=== PATIENT | female | born 1945 | race Caucasian/White ===

== ENCOUNTER → 2016-11-11 | Outpatient (CLI) | payer MEDICARE, OTHER ==
[~2016-11-11] MED LIST: ASPIRIN 32325 MG/TAB PO; ASPIRIN 81M81 MG/TA2 PO; CALTRATE 600600 MG PO; CENTRUM1 TAB PO; FLAGYL500 MG PO; KLOR-CON M2020 MEQ PO; LASIX 20MG TABL20 MG PO; LOPRESSOR 225 MG/TAB; LOPRESSOR 225 MG/TAB PO; MIRALAX PA17 GM/Dose PO; NORCO 325 MG-51 TAB PO; PREVACID 15MG15 M1 PO; PREVACID 30MG30 M1 PO; ZESTRIL 5MG5 MG PO
== END ==
LOC: MC.RAD 14:32
DX: Z12.31 Encounter for screening mammogram for malignant neoplasm of breast (principal); N63 Unspecified lump in breast; Z80.3 Family history of malignant neoplasm of breast

== ENCOUNTER → 2016-11-14 | Outpatient (CLI) | payer MEDICARE, OTHER | LOC: MC.RAD 10:59 | DX: Z12.31 Encounter for screening mammogram for malignant neoplasm of breast (principal) ==

== ENCOUNTER 2018-08-25 17:22 | Inpatient (IN) | payer MEDICARE, OTHER ==
[~2018-08-25] VITALS: Ht 162.6 cm; Wt 81.8 kg
[~2018-08-25 17:22] MED LIST changes: -ASPIRIN 32325 MG/TAB PO
[2018-08-25 21:26] LABS: BASO # 0.1 (0.0-0.2); BASO % 0.5 % (0.0-2.0); EOS # 0.1 (0.0-0.7); EOS % 0.6 % (0-4.0); GRAN # 10.7 (1.4-6.5); GRAN % 81.6 % (42.2-75.2); HEMOGLOBIN 13.1 g/dl (12.5-16.0); LYMPH # 1.2 (1.2-3.4); LYMPH % 9.3 % (20.0-51.0); MEAN CELL VOLUME 90 fl (80.0-100.0); MEAN CORPUSCULAR HEMOGLOBIN 29 pg (27.0-31.0); MEAN CORPUSCULAR HGB CONC 32 g/dl (33.0-37.0); MEAN PLATELET VOLUME 10.3 fl (7.4-10.4); MONO % 7.5 % (1.7-9.3); PLATELET COUNT 249 K/mm3 (130-400); RED BLOOD COUNT 4.58 M/mm3 (4.10-5.30); REDCELL DISTRIBUTION WIDTH-CV 14.5 % (11.5-14.5)
[2018-08-25 21:36] LABS: ALBUMIN 3.8 gm/dL (3.5-5.0); BILIRUBIN,TOTAL 0.4 mg/dL (0.0-1.0); CALCIUM 8.7 mg/dL (8.4-10.2); CREATININE, serum 0.82 mg/dL (0.52-1.25); POTASSIUM 4.4 mmol/L (3.4-5.0); TOTAL PROTEIN 6.9 gm/dL (6.4-8.2)
[2018-08-25] MEDS ORDERED: PRILOSEC10 MG PO (21:57)
[2018-08-25] MEDS ORDERED: LIPITOR 10MG10 MG PO (21:59)
[2018-08-25] MEDS ORDERED: BENADRYL25 M2 PO (22:00)
[2018-08-25] MEDS ORDERED: CENTRUM SILVER1 TAB (22:01)
[2018-08-25] MEDS ORDERED: CALTRATE-600 W600 MG PO (22:01)
--- NOTE | 2018-08-25 22:20 | NUR ---
Patient up to room from ER by jamil. Alert and oriented x 3. 5 page complete. Splint and CARYL wrap to LLE. SCD to RLE. Cap refill <3 to BLE. Patient stated pain 5/10 to LLE. Edema noted to LLE. IV fluids infusing via pump. Patient repositioned for comfort. Johnson to dependent drainage with clear yellow urine present. Denies further needs at this time.
[2018-08-25 23:01] LABS: PH 5 (5-8); SQUAMOUS EPITHELIAL 0-2 /hpf; URINE APPEARANCE Clear; URINE BACTERIA None Seen /hpf; URINE BILIRUBIN Negative (NEGATIVE); URINE BLOOD Negative (NEGATIVE); URINE COLOR Yellow; URINE GLUCOSE Negative (NEGATIVE); URINE KETONE Negative (NEGATIVE); URINE LEUKOCYTE ESTERASE Negative (NEGATIVE); URINE NITRATE Negative (NEGATIVE); URINE PROTEIN(semi-quant) Negative (NEGATIVE); URINE UROBILINOGEN Negative (NEGATIVE)
[2018-08-26 00:55] VITALS: BP 153/67; PULSE 98; TEMP 97.8
[2018-08-26 01:04] LABS: COLLECTION METHOD CATHETER
[2018-08-26 04:14] VITALS: BP 134/70; PULSE 88; TEMP 98.3
--- NOTE | 2018-08-26 05:43 | NUR ---
Patient has rested intermittently through the night. Has requested medications for pain to left ankle through the night. Medications given per orders. Cap refill to LLE <3. SCD maintained to RLE. Johnson to dependent drainage with clear yellow urine present. Splint to LLE, CDI. Denies further needs at this time. Will report off to day shift.
--- NOTE | 2018-08-26 07:21 | NUR ---
REPORT FROM LUANNE SCHNEIDER.
[2018-08-26 07:48] VITALS: BP 145/74; PULSE 71; TEMP 98.3
--- NOTE | 2018-08-26 08:27 | NUR ---
PT SITTING UP IN BED EATING BREAKFAST. DR. MALIN AND NEWTON PA IN TO ROUND ON PT. PLAN ON SURGERY TOMMORROW AFTERNOON PT MAY EAT AND DRINK NPO MID NOC. ELEVATED LEFT ANKLE AND APPLIED REFRESHED ICE TO SPLINTED LEFT ANKLE.
[2018-08-26 12:09] VITALS: BP 155/74; PULSE 85; TEMP 98.3
--- NOTE | 2018-08-26 15:09 | NUR ---
KYRA and SW student met with the patient to discuss discharge plan. The patient lives alone in [place]. She states that her sister, Karla, and niece live in [place]. She reports independence with ADLs prior to hospitalization and has a cane. The patient does not have home health services at this time, but states that she would be agreeable to services if needed. The patient's PCP is Dr. Jessie Mon and she receives her medications at the [facility]. She reports no difficulties obtaining her meds and that she utilizes the [facility] services to get around. The patient's advanced directives are in EMR. PT has been orderd. SW to continue to follow.
[2018-08-26 15:19] VITALS: BP 110/64; PULSE 78; TEMP 98.6
[2018-08-26 20:00] VITALS: BP 140/57; PULSE 82; TEMP 98.8
--- NOTE | 2018-08-26 20:13 | NUR ---
Patient in bed, winces with movement of left leg. Medicated with [place] 5/325mg at this time for pain to left ankle/foot. Johnson care provided, yellow urine noted. IVF infusing to right AC without redness or swelling. Will be NPO after midnight for surgery.
[2018-08-27] VITALS (16 sets, daily range): BP systolic 98–166; BP diastolic 47–75; PULSE 65–96; TEMP 97.2–98.6
--- NOTE | 2018-08-27 04:34 | NUR ---
patient complains of pain to left foot/ankle 12/11, medicated with Morphine 2mg IV now.
[2018-08-27 06:40] LABS: HEMATOCRIT 37.7 % (37.0-47.0); HEMOGLOBIN 12.2 g/dl (12.5-16.0); RED BLOOD COUNT 4.31 M/mm3 (4.10-5.30)
[2018-08-27 06:41] LABS: BASO # 0.1 (0.0-0.2); BASO % 0.7 % (0.0-2.0); EOS # 0.4 (0.0-0.7); EOS % 4.9 % (0-4.0); GRAN # 5.4 (1.4-6.5); GRAN % 61.6 % (42.2-75.2); LYMPH # 1.8 (1.2-3.4); LYMPH % 20.3 % (20.0-51.0); MEAN CELL VOLUME 88 fl (80.0-100.0); MEAN CORPUSCULAR HEMOGLOBIN 28 pg (27.0-31.0); MEAN CORPUSCULAR HGB CONC 32 g/dl (33.0-37.0); MEAN PLATELET VOLUME 10.7 fl (7.4-10.4); MONO % 11.8 % (1.7-9.3); PLATELET COUNT 209 K/mm3 (130-400); REDCELL DISTRIBUTION WIDTH-CV 14.3 % (11.5-14.5)
[2018-08-27 06:47] LABS: CALCIUM 8.4 mg/dL (8.4-10.2); CREATININE, serum 0.73 mg/dL (0.52-1.25); POTASSIUM 3.8 mmol/L (3.4-5.0)
--- NOTE | 2018-08-27 07:22 | NUR ---
Report from Lila SCHNEIDER.
--- NOTE | 2018-08-27 09:32 | NUR ---
PT TO SURGERY LATER THIS PM. FREQUENT REPOSITIONING FOR PT COMFORT. PO PAIN MEDS GIVEN ORDERED.
--- NOTE | 2018-08-27 09:37 | NUR ---
Initial visit; Patient thanked Marketing Rep for looking in on her and offering prayer and God's blessings for a successful surgical procedure and rapid and thorough healing.
--- NOTE | 2018-08-27 11:55 | NUR ---
KYRA and SW student followed up with the patient and patient's sister, Karla, to discuss post-acute rehab. The patient and patient's sister are agreeable to rehab. SW discussed options and presented and explained the patient choice form. The patient and patient's sister preferred 1) [facility] 2) [facility]. Patient choice form signed by the patient's sister and she was provided a copy. SW has contacted and faxed a referral to both facilities. SW awaiting their screenings. Karla Bell: sister cell ph#[phone]
--- NOTE | 2018-08-27 12:57 | NUR ---
pt to surgery per bed with John, Patient bathed with clorhexidine soap pre op by [employer] school library media specialist.
--- NOTE | 2018-08-27 13:10 | NUR ---
Uday, at [facility], reports that they can accept the patient for a skilled stay. SW to inform the patient and patient's sister and continue to follow.
--- NOTE | 2018-08-27 13:55 | NUR ---
Ros, at [facility], reports that they can accept the patient for a skilled stay and that she would have a semi-private room in [facility]. SW to inform the patient and patient's sister and continue to follow.
--- NOTE | 2018-08-27 16:02 | NUR ---
PT TO ROOM 347 PER BED WITH REPORT FROM DUNCAN SCHNEIDER PACU @[id number]. PT RESTING IN BED WITH FAMILY AT BED SIDE PT DOES NOT HAVE MOVEMENT OR FEELING BELOW HIPS. PT IS A/O X3. TOES PINK AND WARM ON SURGICAL SIDE. SPLINT OVER INCISION CDI.
--- NOTE | 2018-08-27 17:26 | NUR ---
PT RESTING IN BED DENIES PAIN OR NEEDS. SISTER AT BEDSIDE.
--- NOTE | 2018-08-27 18:46 | NUR ---
REPORT TO JAMESON RN
--- NOTE | 2018-08-27 20:00 | NUR ---
Patient in bed, alert and oriented x2. Reports full movement to right leg, no feeling or movement to left leg. Surgical dressing/splint intact to left leg, elevated on pillows with ice pack present. Has SL to left hand and SL to right AC. Both sites without redness or swelling. Has benitez to BSD, catheter care provided. Denies need for pain meds at this time.
--- NOTE | 2018-08-27 22:00 | NUR ---
Patient reports painful IV site to left hand, dc'd with angiocath intact. IV antibiotic infuses to right AC site without redness or swelling. Reports left lower leg/foot remain numb. Repositioned up in the bed with assist.
[2018-08-28 03:10] VITALS: BP 143/68; PULSE 78; TEMP 99.1
--- NOTE | 2018-08-28 06:45 | NUR ---
Patient reports sensation to left foot and able to lift off the pillow. Medicated with [place] 7.5mg 1 tab a this time for 6/10 pain.
[2018-08-28 07:52] LABS: BASO % 0.4 % (0.0-2.0); EOS # 0.5 (0.0-0.7); EOS % 4.7 % (0-4.0); GRAN # 7.2 (1.4-6.5); GRAN % 71.7 % (42.2-75.2); HEMATOCRIT 37.3 % (37.0-47.0); HEMOGLOBIN 11.8 g/dl (12.5-16.0); LYMPH # 1.2 (1.2-3.4); LYMPH % 11.5 % (20.0-51.0); MEAN CELL VOLUME 90 fl (80.0-100.0); MEAN CORPUSCULAR HEMOGLOBIN 28 pg (27.0-31.0); MEAN CORPUSCULAR HGB CONC 32 g/dl (33.0-37.0); MEAN PLATELET VOLUME 10.3 fl (7.4-10.4); MONO # 1.1 (0.1-0.6); MONO % 11.2 % (1.7-9.3); PLATELET COUNT 197 K/mm3 (130-400); RED BLOOD COUNT 4.16 M/mm3 (4.10-5.30); REDCELL DISTRIBUTION WIDTH-CV 14.6 % (11.5-14.5)
--- NOTE | 2018-08-28 08:00 | NUR ---
PATIENT UP TO THE CHAIR WITH THERAPY THIS MORNING. PATIENT IS DROWSY, BUT EASILY AROUSABLE. PATIENT IS A&O. BLOOD PRESSURE LOW. AM BP MEDICATION HELD. OTHERWISE VSS. BOWEL SOUNDS ACTIVE ALL FOUR QUADRANTS. PATIENT TOLERATING FOOD & LIQUIDS WITHOUT ANY COMPLAINTS OF N/V. POSITIVE POPLITEAL PULSES EQUAL BILATERALLY. NON-PITTING EDEMA TO LLE NOTED. CAP REFILL <3 SECONDS. CMS INTACT TO LLE. LLE DRESSED WITH SPLINT AND CARYL WRAP AND IS CD&I. LLE ELEVATED WITH 1 PILLOW. RUFF CATHETER TO DEPENDENT DRAINAGE WITH SMALL AMOUNTS OF CLEAR PALE YELLOW URINE PRESENT IN RUFF BAG. INT TO RIGHT AC. CALL LIGHT WITHIN REACH. PATIENT DENIES ANY NEEDS AT THIS TIME.
[2018-08-28 08:02] LABS: CALCIUM 8.5 mg/dL (8.4-10.2); CREATININE, serum 0.76 mg/dL (0.52-1.25)
[2018-08-28 08:08] VITALS: BP 109/46; PULSE 89; TEMP 98
[2018-08-28 12:55] VITALS: BP 115/70; PULSE 79; TEMP 98
[2018-08-28] MEDS ORDERED: ASPI325T6 PO (13:04)
[2018-08-28] MEDS ORDERED: COLACE 100100 MG/CAP PO (13:05)
[2018-08-28] MEDS ORDERED: TYLENOL 325MG325 MG PO (13:05)
[2018-08-28] MEDS ORDERED: DULCOLAX S10 MG/SUPP RC (13:05)
[2018-08-28] MEDS ORDERED: NORCO 325 MG-7.1 TAB PO (13:06)
[2018-08-28] MEDS ORDERED: GOOD NEIGH1200 MG/15 PO (13:06)
--- NOTE | 2018-08-28 14:50 | NUR ---
PATIENT'S RUFF CATHETER DC'D PER DOCTORS ORDERS. 10 MLS OF SALINE ASPIRATED FROM BALLOON. TIP INTACT. PERICARE COMPLETE. NO OTHER NEEDS AT THIS TIME.
--- NOTE | 2018-08-28 15:00 | NUR ---
PATIENT VOIDING SUFFICIENTLY POST RUFF REMOVAL.
[2018-08-28 15:32] VITALS: BP 115/70; PULSE 79; TEMP 98
--- NOTE | 2018-08-28 15:45 | NUR ---
PATIENT PERSONAL BELONINGS GATHERED. REPORT CALLED TO TRACY WINKLER AT [facility]. PATIENT TAKEN TO PRIVATE TRANSPORT VEHICLE VIA WHEELCHAIR. PATIENT TRANSFERRED.
--- NOTE | 2018-08-28 15:59 | NUR ---
The patient is to discharge today, 08/28, to [facility] for a skilled stay. Transportation was set for 1515, via [facility]. KYRA informed the patient's nurse and the patient's sister, via phone. They were both in agreeance. KYRA also presented and explained the IM form to the patient and patient's niece. The patient verbalized understanding, signed, and she was provided a copy. No additional needs at this time.
== END 2018-08-28 15:45 | DRG 494 ==
LOC: COL.ER 17:22 → SURG 18:55
PROVIDERS: Nurse Practitioner Family; Orthopaedic Surgery; Physician Assistant; ADMIT Hospitalist
PROC: 0QSHXZZ Reposition Left Tibia, External Approach (ICD-10-PCS; 2018-08-25)
PROC: 0QSH04Z Reposition Left Tibia with Internal Fixation Device, Open Approach (ICD-10-PCS; principal; 2018-08-27 13:30)
DX: S82.852A Displaced trimalleolar fracture of left lower leg, initial encounter for closed fracture (principal); I10 Essential (primary) hypertension; E78.5 Hyperlipidemia, unspecified; W00.0XXA Fall on same level due to ice and snow, initial encounter
CPT/HCPCS: 99222-AI; 99232-AI; A9284; C1713; J0690; J1170; J1885; J2250; J2270; J2405; J2704; J2795; J3010; J7030; Q4045

== ENCOUNTER → 2018-10-05 | Outpatient (CLI) | payer MEDICARE, OTHER ==
[~2018-10-05] MED LIST changes: +ASPI325T6 PO; +BENADRYL25 M2 PO; +CALTRATE-600 W600 MG PO; +CENTRUM SILVER1 TAB; +COLACE 100100 MG/CAP PO; +DULCOLAX S10 MG/SUPP RC; +GOOD NEIGH1200 MG/15 PO; +LIPITOR 10MG10 MG PO; +NORCO 325 MG-7.1 TAB PO; +PRILOSEC10 MG PO; +TYLENOL 325MG325 MG PO
== END ==
LOC: ZLAB.STJ 12:03
DX: S81.802A Unspecified open wound, left lower leg, initial encounter (principal)

== ENCOUNTER → 2018-10-08 | Outpatient (CLI) | payer MEDICARE, OTHER ==
[2018-10-08 10:32] LABS: CALCIUM 9.7 mg/dL (8.4-10.2); CREATININE, serum 0.81 mg/dL (0.52-1.25); POTASSIUM 4.5 mmol/L (3.4-5.0)
== END ==
LOC: ZLAB.STJ 09:14
PROVIDERS: Internal Medicine
DX: R53.1 Weakness (principal)

== ENCOUNTER → 2020-05-16 | Outpatient (CLI) | payer MEDICARE | LOC: MC.RAD 12:44 | DX: N60.01 Solitary cyst of right breast (principal); N60.02 Solitary cyst of left breast ==

== ENCOUNTER → 2020-11-16 | Outpatient (CLI) | payer MEDICARE | LOC: MC.RAD 10:58 | DX: N63.14 Unspecified lump in the right breast, lower inner quadrant (principal); N60.01 Solitary cyst of right breast; R92.2 Inconclusive mammogram ==

== ENCOUNTER → 2021-05-17 | Outpatient (CLI) | payer MEDICARE | LOC: MC.RAD 07:00 | DX: N60.01 Solitary cyst of right breast (principal) ==